=== PATIENT | female | born 1955 | race Hispanic/Latino ===

== ENCOUNTER → 2021-01-11 | Outpatient (CLI) | payer BC | END | disposition home or self-care (01) | LOC: OIH 13:01 | PROVIDERS: ATTEND Internal Medicine | DX: M19.012 Primary osteoarthritis, left shoulder (principal); M75.22 Bicipital tendinitis, left shoulder; M85.80 Other specified disorders of bone density and structure, unspecified site | CPT/HCPCS: 73030 ==